=== PATIENT | female | born 1970 | race Caucasian/White ===

== ENCOUNTER 2018-10-11 11:23 | Emergency (ER) | payer BC, OTHER ==
[2018-10-11] MEDS ORDERED: ASPIRIN 81 MG CHEWABLE CTB ONE (11:29)
[2018-10-11] MEDS ORDERED: ASPIRIN EC 81 MG PO SCH (11:30)
[2018-10-11 11:33] LABS: HEMATOCRIT 49 % (35-47); HEMOGLOBIN 15.7 gm/dl (12.0-15.5); MEAN CORPUSCULAR HEMOGLOBIN 27.2 pg (27.0-32.0); MEAN CORPUSCULAR HGB CONC 31.9 gm/dl (32.0-36.0); MEAN CORPUSCULAR VOLUME 85 fL (81-99)
[2018-10-11 11:36] VITALS: TEMP 97.6
[2018-10-11] MEDS ORDERED: NITROGLYCERIN 0.4 MG TAB SL PRN (11:38)
[2018-10-11] MEDS ORDERED: SODIUM CHLORIDE 0.9% FLUSH 10 ML SOL IV PRN (11:38)
[2018-10-11] MEDS ORDERED: MORPHINE SULFATE 10 MG/ML SOL IV PRN (11:38)
[2018-10-11] MEDS ORDERED: NITROGLYCERIN 5 MG/ML 50 MG in DEXTROSE 250 ML 250 ML IV PRN (11:38)
[2018-10-11] MEDS ORDERED: ASPIRIN 81 MG CHEWABLE CTB PO STA (11:38)
[2018-10-11] MEDS ORDERED: NITROGLYCERIN 0.4 MG TAB SL ONE (11:42)
[2018-10-11 11:55] LABS: ALBUMIN 4.1 gm/dl (3.4-5.0); ALKALINE PHOSPHATASE 71 IU/L (46-116); ALT 25 IU/L (14-63); AST 21 IU/L (15-37); BILIRUBIN,TOTAL 0.5 mg/dl (0.2-1.0); BLOOD UREA NITROGEN 17 mg/dl (7-18); CALCIUM 9.9 mg/dl (8.5-10.1); CHLORIDE 96 mMol/L (98-107); CREATININE 0.91 mg/dl (0.60-1.00); GLUCOSE 88 mg/dl (74-106); POTASSIUM 3.6 mMol/L (3.5-5.1); SODIUM 136 mMol/L (136-145); TROP I < 0.017 ng/ml (0.000-0.056)
[2018-10-11 11:59] LABS: BAND NEUTROPHILS % (MANUAL) 0 %; BASOPHILS % (MANUAL) 0 % (0-3); EOSINOPHILS % (MANUAL) 0 % (0-9); LYMPHOCYTES % (MANUAL) 21 % (10-50); MONOCYTES % (MANUAL) 5 % (0-12); NEUTROPHILS % (MANUAL) 74 % (37-80)
[2018-10-11 12:00] LABS: NORMAL RBCS PRESENT
[2018-10-11] MEDS ORDERED: HEPARIN SODIUM 5000 U/ML SOL IV ONE (12:06)
[2018-10-11] MEDS ORDERED: HEPARIN SODIUM 5000 U/ML SOL ONE ×2 (12:09)
[2018-10-11] MEDS ORDERED: HEPARIN PREMIX 25,000 U/250 ML SOL IV SCH (12:15)
[2018-10-11] MEDS ORDERED: METOPROLOL SUCCINATE 50 MG ER TAB ONE (12:41)
[2018-10-11 12:52] VITALS: RESP 18
[2018-10-11 12:54] VITALS: BP 163/97; PULSE 87; O2SAT 97
[2018-10-12] MEDS ORDERED: METOPROLOL SUCCINATE 50 MG ER TAB PO SCH (09:00)
== END 2018-10-11 12:54 | disposition short-term general hospital (02) | DRG 313 ==
LOC: ED 11:23
DX: R07.9 Chest pain, unspecified (principal); I10 Essential (primary) hypertension
CPT/HCPCS: 71045; 80053; 84484; 85007; 85027; 85610; 85730; 93005; 96365; 96374; 99070; 99285; 99291; J1644; A9270-GY; J3490